=== PATIENT | male | born 1990 | race Two or more races ===

== ENCOUNTER 2017-04-18 23:47 | Emergency (ER) | payer MEDICAID ==
[~2017-04-18] VITALS: Ht 180.3 cm; Wt 89.8 kg
[~2017-04-18 23:47] MED LIST: BIAXIN500 MG ORAL; DOXYCYCLINE MO100 MG ORAL; ELIMITE 5% CREA60 GM TOPIC; NKM; NORCO 5-325 TA1 EACH ORAL; ONDANSETRON ODT4 MG ORAL; RANITIDINE HCL150 MG ORAL; TRAMADOL HCL50 MG ORAL
[2017-04-19 00:07] VITALS: BP 162/100
--- NOTE | 2017-04-19 00:29 | Emergency Room Report ---
History of Present Illness General Chief Complaint: Male Urogenital Problems Source: Patient Present Illness HPI Is a 26-year-old male who presents with chief complaint of he now discharge. He had unprotected sex from a one nightstand about a week ago. 2 days later he noticed some dysuria. Tonight he noticed a whitish discharge. No fever chills but no nausea vomiting. History of STD in the past. Allergies: Coded Allergies: IBUPROFEN (Verified Allergy, Unknown, 05/20/15) Patient History Past Medical History: see triage record, old chart reviewed Past Surgical History: none Pertinent Family History: none Social History: Denies: smoking Immunizations: other Reviewed Nursing Documentation: PMH: Agreed, PSxH: Agreed Nursing Documentation-PMH Hx Cardiac Problems: No Hx Hypertension: No Hx Pacemaker: No Hx Asthma: No Hx COPD: No Hx Diabetes: No Hx Cancer: No Hx Gastrointestinal Problems: No Hx Dialysis: No History Of Psychiatric Problem: No Hx Neurological Problems: No Hx Cerebrovascular Accident: No Hx Seizures: No Review of Systems Eye: Denies: eye pain, blurred vision ENT: Denies: ear pain, nose congestion, throat swelling Respiratory: Denies: cough, shortness of breath Cardiovascular: Denies: chest pain, palpitations Gastrointestinal: Denies: abdominal pain, diarrhea, nausea, vomiting Genitourinary: Reports: discharge, dysuria Musculoskeletal: Denies: back pain, joint pain Skin: Denies: rash Neurological: Denies: headache, numbness Endocrine: Denies: increased thirst, increased urine Hematologic/Lymphatic: Denies: easy bruising All Other Systems: negative except mentioned in HPI Physical Exam Vital Signs Date Time Temp Pulse Resp B/P (MAP) Pulse Ox O2 Delivery O2 Flow Rate FiO2 04/18/17 23:53 98.1 96 16 162/100 100 Room Air vitals normal except for high blood pressure Sp02 EP Interpretation: reviewed, normal General Appearance: well appearing, no apparent distress, alert Head: normocephalic, atraumatic Eyes: bilateral eye PERRL, bilateral eye EOMI ENT: hearing grossly normal, normal pharynx Neck: full range of motion, supple, no meningismus Respiratory: chest non-tender, lungs clear, normal breath sounds Cardiovascular #1: regular rate, rhythm, no murmur Gastrointestinal: normal bowel sounds, non tender, no mass, no organomegaly, no bruit, non-distended Genitourinary: other - Greenish discharge. No testicular tenderness. Musculoskeletal: back normal, gait/station normal, normal range of motion Neurologic: alert, oriented x3 Psychiatric: mood/affect normal Skin: warm/dry Medical Decision Making Diagnostic Impression: Primary Impression: Urethritis, gonococcal, acute ER Course Patient with a penile discharge. Most likely gonorrhea. No evidence of systemic spread. We'll discharge home. Recommend outpatient testing for HIV, hepatitis, syphilis to name a few. Also recommended he has his girlfriend treated so he doesn't get reinfected. Last Vital Signs Date Time Temp Pulse Resp B/P (MAP) Pulse Ox O2 Delivery O2 Flow Rate FiO2 04/19/17 00:07 98.1 96 16 162/100 100 Room Air Status: improved Disposition: HOME, SELF-CARE Condition: Stable Patient Instructions: Urethritis, Adult Additional Instructions: Followup with your doctor 7 days as needed. Recommend outpatient testing for hepatitis, syphilis, HIV, or other STDs to name a few. This can be done anonymously. Also recommended to have your girlfriend treated to prevent reinfection and prevent complication from STDs to her. AKDE OWENS M.D. Apr 19, 2017 00:29
[2017-04-19] MEDS ORDERED: Azithromycin 250mg tab ORAL ONE (00:30)
[2017-04-19 01:16] VITALS: BP 162/100
== END 2017-04-19 02:15 | disposition home or self-care (01) ==
LOC: EMR 04-19 02:13
DX: A54.01 Gonococcal cystitis and urethritis, unspecified (principal)
CPT/HCPCS: 96372; 99284; J0696; Q0144

== ENCOUNTER 2017-10-06 17:46 | Emergency (ER) | payer MEDICAID ==
[~2017-10-06] VITALS: Ht 177.8 cm; Wt 86.2 kg
[2017-10-06] MEDS ORDERED: [UNRECOGNIZED DRUG - OTHER] (17:57)
[2017-10-06 18:23] VITALS: BP 153/92
[2017-10-06] MEDS ORDERED: Solu-MEDROL 125mg Inj IM ONE (18:30)
[2017-10-06] MEDS ORDERED: DiphenhydrAMINE 50mg/ml Inj IM ONE (18:30)
--- NOTE | 2017-10-06 18:45 | Emergency Room Report ---
History of Present Illness General Chief Complaint: Skin Rash/Abscess Source: Patient Present Illness HPI 27-year-old male presents to the emergency department complaining of itchy rash generalized throughout his body since yesterday. Patient states he took one Benadryl at approximately 1 PM which provided little to no relief. Patient is also reporting symptoms interdigitally. He states he is concerned about scabies although he reports no other persons in his household are experiencing symptoms. states that itching between his digits have been going on for a couple weeks now. Denies lesions/rashes elsewhere on the body. Denies new medications or body washes or creams. Denies swelling of the lips, tongue , throat or airway. Denies wheezing, or shortness of breath. Denies recent travel , recent illness or ill contacts. denies blisters, oral lesions, or sloughing of the skin. .He denies fevers, chills, open wounds. Allergies: Coded Allergies: IBUPROFEN (Verified Allergy, Unknown, 05/20/15) Patient History Past Medical History: see triage record Past Surgical History: none Pertinent Family History: none Reviewed Nursing Documentation: PMH: Agreed; PSxH: Agreed Nursing Documentation-PMH Past Medical History: No Stated History Hx Cardiac Problems: No Hx Hypertension: No Hx Pacemaker: No Hx Asthma: No Hx COPD: No Hx Diabetes: No Hx Cancer: No Hx Gastrointestinal Problems: No Hx Dialysis: No Hx Neurological Problems: No Hx Cerebrovascular Accident: No Hx Seizures: No Review of Systems All Other Systems: negative except mentioned in HPI Physical Exam Vital Signs Date Time Temp Pulse Resp B/P (MAP) Pulse Ox O2 Delivery O2 Flow Rate FiO2 10/06/17 17:51 98.4 96 12 153/92 97 Room Air 98.4 Sp02 EP Interpretation: reviewed, normal General Appearance: no apparent distress, alert, GCS 15, non-toxic Head: normocephalic, atraumatic ENT: hearing grossly normal, normal voice, other - No swelling of the lips or tongue, no stridor, no oral lesions. Neck: full range of motion Respiratory: chest non-tender, lungs clear, normal breath sounds, no respiratory distress, no wheezing, speaking full sentences Cardiovascular #1: regular rate, rhythm, no edema Gastrointestinal: non tender, soft, other - rash on torso and back Rectal: deferred Genitourinary: normal inspection Musculoskeletal: back normal, gait/station normal, normal range of motion, non- tender Neurologic: alert, oriented x3, responsive, motor strength/tone normal, sensory intact, speech normal, grossly normal Psychiatric: judgement/insight normal Skin: normal color, warm/dry, well hydrated, rash - erythematous plaques and discrete hives, no blisters or vessicles, no sloughing of skin, no crusting. generalized on torso, back, neck, bilateral UE's and LE's. small papules intergigitally to hands bilaterally with mild linear pattern, some excoriations noted. Lymphatic: no adenopathy Medical Decision Making PA Attestation Dr. Campo is my supervising Physician whom patient management has been discussed with. Diagnostic Impression: Primary Impression: Rash and other nonspecific skin eruption ER Course 27-year-old male presents to the emergency department complaining of itchy rash generalized throughout his body since yesterday. Patient states he took one Benadryl at approximately 1 PM which provided little to no relief. Patient is also reporting symptoms interdigitally. He states he is concerned about scabies although he reports no other persons in his household are experiencing symptoms. states that itching between his digits have been going on for a couple weeks now. Denies lesions/rashes elsewhere on the body. Denies new medications or body washes or creams. Denies swelling of the lips, tongue , throat or airway. Denies wheezing, or shortness of breath. Denies recent travel , recent illness or ill contacts. denies blisters, oral lesions, or sloughing of the skin. .He denies fevers, chills, open wounds. Ddx considered but are not limited to cellulitis, scabies, shingles, varicella, dermatitis, urticaria, eczema, tinea, viral exanthem, SJS Vital signs: are WNL, pt. is afebrile H&PE are most consistent with Allergic urticaria no evidence of airway involvement or pending airway compromise. ORDERS: none required at this time, the diagnosis is clinical ED INTERVENTIONS: -Benadryl IM -Solumedrol IM DISCHARGE: At this time pt. is stable for d/c to home. Will provide printed patient care instructions, and any necessary prescriptions. Care plan and follow up instructions have been discussed with the patient prior to discharge. Last Vital Signs Date Time Temp Pulse Resp B/P (MAP) Pulse Ox O2 Delivery O2 Flow Rate FiO2 10/06/17 18:23 98.4 96 12 153/92 97 Room Air 98.4 Disposition: HOME, SELF-CARE Condition: Stable Scripts Prednisone* (PREDNISONE*) 20 Mg Tablet 40 MG ORAL DAILY, #5 TAB Prov: Luz Dobbs 10/06/17 Permethrin* (ELIMITE*) 60 Gm Cream..g. 1 APPLIC TOPIC ONCE, #60 GM 0 Refills Apply cream from head to toe; leave on for 8-14 hours before washing off with water; may reapply in 1 week if live mites appear. Prov: Luz Dobbs 10/06/17 Hydroxyzine HCl (Hydroxyzine HCl) 25 Mg Tablet 25 MG ORAL FOUR TIMES A DAY, #20 TAB Prov: Luz Dobbs 10/06/17 Patient Instructions: Rash Additional Instructions: Take medications as directed. Follow up with a Primary Care Provider in 3-5 days, even if your symptoms have resolved. --Please review list of primary care clinics, if you do not already have a primary care provider Return sooner to ED if new symptoms occur, or current symptoms become worse. Do not drink alcohol, drive, or operate heavy machinery while taking Hydroxyzine as this may cause drowsiness. - Please note that this Emergency Department Report was dictated using [employer] cell binder technology software, occasionally this can lead to erroneous entry secondary to interpretation by the dictation equipment. Luz Dobbs Oct 06, 2017 18:45
[2017-10-06] MEDS ORDERED: PERMETHRIN60 GM TOPIC (19:10)
[2017-10-06] MEDS ORDERED: ATARAX25 MG ORAL (19:10)
[2017-10-06] MEDS ORDERED: PREDNISONE20 MG ORAL (19:10)
[2017-10-06 19:21] VITALS: BP 145/85
== END 2017-10-06 19:23 | disposition home or self-care (01) ==
LOC: EMR 18:25
DX: R21 Rash and other nonspecific skin eruption (principal); Z88.6 Allergy status to analgesic agent
CPT/HCPCS: 96372; 99284; J1200; J2930

== ENCOUNTER 2018-03-07 15:38 | Emergency (ER) | payer MEDICAID, OTHER ==
[~2018-03-07] VITALS: Ht 177.8 cm; Wt 89.8 kg
[~2018-03-07 15:38] MED LIST changes: +ATARAX25 MG ORAL; +PERMETHRIN60 GM TOPIC; +PREDNISONE20 MG ORAL; +[UNRECOGNIZED DRUG - OTHER]
[2018-03-07 15:56] VITALS: BP 148/92
[2018-03-07] MEDS ORDERED: HydrOXYzine tab 25mg tab ORAL ONE (16:15)
[2018-03-07] MEDS ORDERED: BACITRACIN-P28.35 GM TP (16:31)
[2018-03-07] MEDS ORDERED: HYDROCORTISONE30 G2 TP (16:31)
[2018-03-07] MEDS ORDERED: BENADRYL25 MG ORAL (16:31)
[2018-03-07] MEDS ORDERED: PERMETHRIN60 GM TOPIC (16:31)
--- NOTE | 2018-03-07 16:32 | Emergency Room Report ---
History of Present Illness General Chief Complaint: Skin Rash/Abscess Source: Patient Present Illness HPI 27 [id number] male patient presents to ER complaining of itchy rash over entire body. Also complaining of itchiness and inguinal region, states she has a history of genital warts, currently being treated by primary care provider, states that some of them were frozen off, has had procedure done multiple times , last time was one week ago. Reports extremely itchy. Denies fever, chest pain, shortness of breath. Denies vomiting. Denies history of diabetes. Currently being seen in the ER with his for similar symptoms of rash, was recently staying at a friend's house was fumigated for bed bugs. Allergies: Coded Allergies: IBUPROFEN (Verified Allergy, Unknown, 05/20/15) Patient History Past Medical History: see triage record Reviewed Nursing Documentation: PMH: Agreed; PSxH: Agreed Nursing Documentation-PMH Hx Cardiac Problems: No Hx Hypertension: No Hx Pacemaker: No Hx Asthma: No Hx COPD: No Hx Diabetes: No Hx Cancer: No Hx Gastrointestinal Problems: No Hx Dialysis: No Hx Neurological Problems: No Hx Cerebrovascular Accident: No Hx Seizures: No Review of Systems All Other Systems: negative except mentioned in HPI Physical Exam Vital Signs Date Time Temp Pulse Resp B/P (MAP) Pulse Ox O2 Delivery O2 Flow Rate FiO2 03/07/18 15:44 98.3 92 22 148/92 98 Room Air 98.2 Sp02 EP Interpretation: reviewed, normal General Appearance: well appearing, no apparent distress, alert, GCS 15, non- toxic Head: normocephalic, atraumatic Eyes: bilateral eye normal inspection, bilateral eye PERRL ENT: hearing grossly normal, normal pharynx, no angioedema, normal voice, uvula midline, moist mucus membranes Neck: full range of motion Respiratory: lungs clear, normal breath sounds, no rhonchi, no respiratory distress, no accessory muscle use, no wheezing, speaking full sentences Cardiovascular #1: regular rate, rhythm, no edema Genitourinary: other - obvious genital warts noted on penile shaft and anterior upper testicles, mild erythema surrounding areas of recent treatment Musculoskeletal: back normal, digits/nails normal, gait/station normal, normal range of motion, non-tender Neurologic: alert, oriented x3, responsive, motor strength/tone normal, sensory intact Psychiatric: mood/affect normal Skin: other - diffuse intermittent papules noted on posterior back and lower extremities, no surrounding erythema or edema, with excoriations noted, no bleeding or drainage, no fluctuance or induration, no crusting, no blisters or vesicles Medical Decision Making PA Attestation Dr. Quezada is my supervising Physician whom patient management has been discussed with. Diagnostic Impression: Primary Impression: Rash and other nonspecific skin eruption Additional Impression: Genital warts ER Course Pt. presents to the ED c/o itchy rash, also requesting exam of genital warts. Ddx considered but are not limited to atopic dermatitis, bug bite, urticaria, allergic reaction. Vital signs: are WNL, pt. is afebrile ER COURSE: Obvious genital warts noted on penile shaft and anterior upper testicles, mild erythema surrounding areas of recent treatment. Will provide bacitracin to prevent possible infection. advised patient to follow-up with physician treating reports to discuss further treatment. Follow-up with [facility] clinic for testing. diffuse intermittent rash consistent with possible bug bites, will provide medication for treatment. will provide treatment for possible scabies infection Do not scratch, apply cool compresses to affected area. clean all clothing and bedding. Followup [facility] PCP and request referral to derm. take Claritin during the day and Benadryl for itching symptoms, side effect of drowsiness Benadryl, SE drowsiness, do not take prior to drinking, driving, operating heavy machinery. DISCHARGE: -Rx given for Benadryl for pruritis. SE may cause drowsiness. -Rx given for hydrocortisone cream. Do not apply to face, testicles or skin creases. - Rx given for Permethrin -Rx given for Bacitracin -Patient instructed to apply warm compresses to affected area. At this time pt. is stable for d/c to home. Patient resting comfortably, in no acute distress, nontoxic appearing. Care plan and follow up instructions have been discussed with the patient prior to discharge. Patient provided with printed patient care instructions, and any necessary prescriptions. Patient instructed to follow-up with primary care provider in 3 - 5 days. Patient questions asked and answered. Patient reports understanding and agreement to treatment plan. ER precautions given. Patient instructed to return to ER immediately for any new or worsening of symptoms including but not limited to increasing SOB, persistent fever. - Please note that this Emergency Department Report was dictated using [employer] teacher technology software, occasionally this can lead to erroneous entry secondary to interpretation by the dictation equipment. Last Vital Signs Date Time Temp Pulse Resp B/P (MAP) Pulse Ox O2 Delivery O2 Flow Rate FiO2 03/07/18 15:56 98.2 92 22 148/92 98 Room Air 98.2 Disposition: HOME, SELF-CARE Condition: Stable Scripts Permethrin* (ELIMITE*) 60 Gm Cream..g. 1 APPLIC TOPIC ONCE, #60 GM 0 Refills Apply cream from head to toe; leave on for 8-14 hours before washing off with water; may reapply in 1 week if live mites appear. Prov: Edwin García 03/07/18 Diphenhydramine Hcl* (BENADRYL*) 25 Mg Capsule 25 MG ORAL Q6H PRN for Itching, #30 CAP Prov: Edwin García 03/07/18 Bacitracin/Polymyxin B Sulfate (BACITRACIN-POLYMYXIN OINTMENT) 28.35 Gm Oint...g. 1 APPLIC TP BID, #28 GM Prov: Edwin García 03/07/18 Hydrocortisone (Hydrocortisone Cream 2.5%) Y Cream.appl 1 APPLIC TP BID, #28 GM Prov: Edwin García 03/07/18 Patient Instructions: Cryosurgery for Skin Conditions, Care After, Insect Bite , [id number], Warts, [id number] Additional Instructions: Followup with primary care provider in 3 -5 days. Request referral to dermatology. Followup with specialist regarding cryotreatment for warts. Do not scratch or itch. Apply cool compresses to affected area. Wash and clean all clothes and bedding. Take medications as directed. Do not apply hydrocortisone medication to face, testicles or skin creases. SE Benadryl drowsiness, do not take prior to drinking , driving, operating heavy machinery. May take Claritin during the day. Patient questions asked and answered. Apply small amount of bacitracin to affected area. ER precautions given, patient instructed to return to ER immediately for any new or worsening of symptoms. [facility] Edwin García Mar 07, 2018 16:32
[2018-03-07 16:55] VITALS: BP 138/78
== END 2018-03-07 16:55 | disposition home or self-care (01) ==
LOC: EMR 16:27
DX: R21 Rash and other nonspecific skin eruption (principal); B07.9 Viral wart, unspecified; Z88.6 Allergy status to analgesic agent
CPT/HCPCS: 99283

== ENCOUNTER 2018-08-06 22:06 | Emergency (ER) | payer OTHER ==
[~2018-08-06] VITALS: Ht 180.3 cm; Wt 92.5 kg
[~2018-08-06 22:06] MED LIST changes: +BACITRACIN-P28.35 GM TP; +BENADRYL25 MG ORAL; +HYDROCORTISONE30 G2 TP
--- NOTE | 2018-08-06 22:06 | NUR ---
ED Nurse Note: pt walked in due to lower abdominal pain started. NAD. VSS. AO4. Accompanied by spouse.
[2018-08-06 22:22] VITALS: BP 152/95
[2018-08-06] MEDS ORDERED: NKM (22:26)
[2018-08-06 22:30] VITALS: BP 152/95
[2018-08-06] MEDS ORDERED: HYDROmorphone 1mg/ml Carpuject IVP ONE (22:45)
--- NOTE | 2018-08-06 23:08 | Emergency Room Report ---
History of Present Illness General Chief Complaint: Abdominal Pain Source: Patient Present Illness HPI This is a 28-year-old male with no past medical history. He presents with chief complaint abdominal pain. Patient had a small local hernia that is been there for months. He came in tonight because it was painful. He was on the toilet straining for a bowel movement when he said he got bigger and painful. This occurred acutely an hour prior to arrival. Had nausea and vomiting. No diarrhea. Pain was 10 out of 10. Did not take anything for it. Denies any other complaint. Allergies: Coded Allergies: IBUPROFEN (Verified Allergy, Unknown, 05/20/15) Patient History Past Medical History: none, see triage record, old chart reviewed Past Surgical History: none Pertinent Family History: none Social History: Denies: smoking Immunizations: other Reviewed Nursing Documentation: PMH: Agreed; PSxH: Agreed Nursing Documentation-PMH Hx Cardiac Problems: No Hx Hypertension: No Hx Pacemaker: No Hx Asthma: No Hx COPD: No Hx Diabetes: No Hx Cancer: No Hx Gastrointestinal Problems: No Hx Dialysis: No Hx Neurological Problems: No Hx Cerebrovascular Accident: No Hx Seizures: No Review of Systems Eye: Denies: eye pain, blurred vision ENT: Denies: ear pain, nose congestion, throat swelling Respiratory: Denies: cough, shortness of breath Cardiovascular: Denies: chest pain, palpitations Gastrointestinal: Reports: abdominal pain, nausea, vomiting; Denies: diarrhea Musculoskeletal: Denies: back pain, joint pain Skin: Denies: rash Neurological: Denies: headache, numbness Endocrine: Denies: increased thirst, increased urine Hematologic/Lymphatic: Denies: easy bruising All Other Systems: negative except mentioned in HPI Physical Exam Vital Signs Date Time Temp Pulse Resp B/P (MAP) Pulse Ox O2 Delivery O2 Flow Rate FiO2 08/06/18 22:22 98.6 91 18 152/95 99 vitals normal except for high blood pressure Sp02 EP Interpretation: reviewed, normal General Appearance: well appearing, no apparent distress, alert Head: normocephalic, atraumatic Eyes: bilateral eye PERRL, bilateral eye EOMI ENT: hearing grossly normal, normal pharynx Neck: full range of motion, supple, no meningismus Respiratory: chest non-tender, lungs clear, normal breath sounds Cardiovascular #1: regular rate, rhythm, no murmur Gastrointestinal: normal bowel sounds, no mass, no organomegaly, no bruit, non- distended, tenderness - Patient has a 2 cm tender supra umbilical hernia. Musculoskeletal: back normal, gait/station normal, normal range of motion Psychiatric: mood/affect normal Skin: warm/dry Procedures Additional Procedure Procedure Narrative Procedure: Umbilical hernia reduction Indication: Incarcerated umbilical hernia Description: After giving patient pain medication, I put him in Trendelenburg. With gentle pressure I was able to reduce the hernia without a problem. Patient felt better. Medical Decision Making Diagnostic Impression: Primary Impression: Umbilical hernia, incarcerated ER Course Patient with incarcerated umbilical hernia that was reduced easily. No evidence of strength relation. No evidence of small bowel obstruction. He is tolerating liquid and by mouth intake here. We'll discharge home. Last Vital Signs Date Time Temp Pulse Resp B/P (MAP) Pulse Ox O2 Delivery O2 Flow Rate FiO2 08/06/18 22:22 98.6 91 18 152/95 99 Status: improved Disposition: HOME, SELF-CARE Condition: Stable Scripts Tramadol Hcl* (ULTRAM*) 50 Mg Tablet 50 MG ORAL Q6H PRN for For Pain, #10 TAB 0 Refills Prov: Rodriguez Martinez MD 08/06/18 Additional Instructions: Follow-up with your doctor in 7 days. No heavy lifting. You may need a referral to see a surgeon for hernia repair. Return if worse. Rodriguez Martinez MD Aug 06, 2018 23:08
[2018-08-06] MEDS ORDERED: TRAMADOL HCL50 MG ORAL (23:09)
[2018-08-06] MEDS ORDERED: DiphenhydrAMINE 50mg/ml Inj IVP ONE (23:15)
--- NOTE | 2018-08-06 23:30 | NUR ---
ED Nurse Note: Patient cleared cleared for discharge per ERMD. AO4. NAD. VSS.Accompanied by spouse. Patient given prescriptions and discharge instructions; verbalized understanding. IV and ID removed. Patient ambulated steady out of ED with all belongings.
== END 2018-08-06 23:30 | disposition home or self-care (01) ==
LOC: EMR 22:45
DX: K42.0 Umbilical hernia with obstruction, without gangrene (principal); Z88.6 Allergy status to analgesic agent
CPT/HCPCS: 96374; 96375; 99284; J1170; J1200; J2405